=== PATIENT | male | born 1955 | race Caucasian/White ===

== ENCOUNTER → 2018-09-24 | Outpatient (CLI) | payer OTHER | LOC: CIMAGING 11:08 | PROVIDERS: ATTEND Family Medicine | DX: M16.11 Unilateral primary osteoarthritis, right hip (principal); Q65.89 Other specified congenital deformities of hip; I87.8 Other specified disorders of veins | CPT/HCPCS: 73502-PO ==

== ENCOUNTER 2019-04-09 11:07 | Observation (INO) | payer OTHER | END 2019-04-10 11:11 | disposition home or self-care (01) | LOC: F3N 11:07 → F2W 17:53 ==